=== PATIENT | female | born 1955 | race Caucasian/White ===

== ENCOUNTER 2024-03-12 11:34 | Emergency (ER) | payer MEDICARE, SELFPAY ==
[2024-03-12 11:50] VITALS: BP 134/82; PULSE 73; RESP 15; TEMP 36.8; O2SAT 94; BMI 16.0
--- NOTE | 2024-03-12 11:53 | XR_ITS ---
Examination: CT abdomen and pelvis without contrast. Coronal 3-D reconstructions. Sagittal 2-D reconstructions. Date and time of exam:March 12, 2024 1243 hours INDICATIONS: Onset left-sided flank pain today CTDI: vol (mGy): 3.94 DLP: (mGycm): 182 Technique: Axial images of the abdomen have been obtained, 3 mm slice thickness Intravenous contrast material has not been administered. Low dose protocols were performed. One or more of the following dose reduction techniques were used; automated exposure control, adjustment of the mA and/or KV according to patient size, use of iterative reconstruction technique. Findings: COPD with severe areas of airspace destruction at the lung bases No visualized liver or splenic lesion No gallstones 2 mm lower pole right renal calculus 2 mm 1 mm 1 mm left renal calculi Mild left hydronephrosis secondary to 5 mm proximal left ureteral calculus Aorta normal size No pericecal inflammatory change Diffuse the enlarged uterus with multiple areas of calcification No bladder mass IMPRESSION: Bilateral renal calculi Mild left hydronephrosis secondary to 5 mm proximal left ureteral calculus Recommend pelvic sonography to assess the significantly enlarged uterus
--- NOTE | 2024-03-12 11:53 | PD.EDRME ---
Rapid Medical Screening Exam RME Arrival date/time: 03/12/24 11:34 68-year-old female with medical history significant for COPD presents emergency department complaints of abdominal pain Chief Complaint: Abdominal Pain Time Seen by Provider: 03/12/24 11:43 Vital signs: Vital Signs Temperature 98.3 F 03/12/24 11:50 Pulse Rate 73 03/12/24 11:50 Respiratory Rate 15 03/12/24 11:50 Blood Pressure 134/82 H 03/12/24 11:50 Pulse Oximetry (%) 94 L 03/12/24 11:50 Oxygen Delivery Method Room Air 03/12/24 11:50
[2024-03-12 12:13] LABS: Basophils % (Auto) 0 % (0-2.5); Eosinophils # (Auto) 0.1 Thou/mm3 (0.0-0.5); Eosinophils % (Auto) 0 % (0-10); Hemoglobin 13.7 g/dL (12.0-16.0); Immature Granulocytes % (Auto) 1 % (0-0); Immature Granulocytes Auto 0.07 Thou/mm3 (0.00-0.00); Lymphocytes # (Auto) 1.1 Thou/mm3 (1.0-4.8); Lymphocytes % (Auto) 8 % (10-50); Mean Corpuscular HGB Conc 33.4 g/dl (31.0-37.0); Mean Corpuscular Hemoglobin 31.4 pg (25.0-35.0); Mean Corpuscular Volume 94 fL (80-100); Monocytes # (Auto) 1.1 Thou/mm3 (0.0-0.8); Monocytes % (Auto) 8 % (0-12); Neutrophils # (Auto) 11.4 Thou/mm3 (1.8-7.7); Neutrophils % (Auto) 83 % (37-80); Nucleated Red Blood Cell % 0 /100 WBC (0); Platelet Count 227 Thou/mm3 (140-440); Red Blood Count 4.36 Miln/mm3 (4.00-5.20); White Blood Count 13.8 Thou/mm3 (3.6-11.0)
[2024-03-12 12:36] LABS: Alanine Aminotransferase 16 U/L (10-49); Albumin, Serum 4.6 gm/dL (3.4-4.8); Alkaline Phosphatase 122 U/L (46-116); Anion Gap 8 (7-16); Aspartate Amino Transferase 25 U/L (0-34); BUN/Creatinine Ratio 26 Ratio (12-20); Bilirubin,Total 0.9 mg/dL (0.3-1.2); Blood Urea Nitrogen 23 mg/dL (9-23); Calcium 9.7 mg/dL (8.3-10.6); Calcium (Corrected) 9.7 mg/dL (8.5-10.1); Carbon Dioxide 26.6 mMol/L (20.0-31.0); Chloride 105 mMol/L (98-107); Creatinine (Component) 0.9 mg/dL (0.6-1.3); Estimated Creatinine Clearance 39.5 mL/min (>60); Globulin 2.3 gm/dL (2.3-3.5); Glucose 92 mg/dL (74-106); Lipase 52 U/L (12-53); Osmolality,Calculated 283 (275-295); Potassium 4.3 mMol/L (3.4-5.1); Sodium 140 mMol/L (136-145); Total Protein 6.9 gm/dL (5.7-8.2); eGFR > 60 See Note
[2024-03-12 13:58] LABS: Collection Type, Urine Clean Catch
[2024-03-12 14:12] LABS: Bacteria,Urine Rare; Bilirubin,Urine Negative (Negative); Blood,Urine 2+ (Negative); Color,Urine Yellow (Lt Yel-Yel); Glucose, Urine Negative (Negative); Ketones,Urine 1+ (Negative); Leukocyte Esterase,Urine Positive (Negative); Nitrite,Urine Negative (Negative); PH,Urine 6.5 (5.0-7.0); Protein,Urine Trace (Neg - Trace); RBC,Urine 1 /hpf (0-3); Specific Gravity,Urine 1.031 (1.001-1.035); Squamous Epithelial Cell,Urine 1 /hpf (0-5); Urobilinogen,Urine Negative mg/dL (0.0-1.0); WBC,Urine 48 /hpf (0-5)
[2024-03-12 14:13] LABS: Culture Indicated,Urine Yes
[2024-03-12 14:14] LABS: Clarity,Urine Hazy (Clear/Hazy)
[2024-03-12 15:42] VITALS: BP 160/82; PULSE 75; RESP 20; TEMP 36.9; O2SAT 95
--- NOTE | 2024-03-12 16:31 | PD.EDADULT ---
ED General RME/HPI General Chief complaint: Abdominal Pain Stated complaint: ABD LEFT X FRI; VOMITING, DIARRHEA Time Seen by Provider: 03/12/24 11:43 Arrival date/time: 03/12/24 11:34 CC: Left flank pain HPI ongoing for the past 4 days with waxing and waning sometimes completely absent particularly Tuesday night and then returns again. The pain does radiate into the left groin area, no prior history of similar events complains of mild nausea OTC medicine of Tylenol taken with some relief. No prior history of similar events currently is not nauseated. Awake alert oriented not in any acute distress. RME / HPI RME / HPI narrative: 03/12/24 11:34 68-year-old female with medical history significant for COPD presents emergency department complaints of abdominal pain Related Data Previous Rx's ?Medication ?Instructions ?Recorded cephalexin 500 mg tablet 500 mg PO TID #21 tabs 03/12/24 ketorolac 10 mg tablet 10 mg PO Q8H #14 tabs 03/12/24 ondansetron 4 mg disintegrating 4 mg PO Q8H #10 tabs 03/12/24 tablet tamsulosin 0.4 mg capsule (Flomax) 0.4 mg PO QDAY #30 caps 03/12/24 Allergies Allergy/AdvReac Type Severity Reaction Status Date / Time No Known Allergies Allergy Verified 03/12/24 11:36 Review of Systems Review of Systems Narrative Review of Systems: GEN: No fever, no chills, no weight loss EYES: No discharge, no visual changes, no pain HEENT: No ear pain, no congestion, no sore throat PULM: No shortness of breath, no cough, no congestion CV: No chest pain, no dyspnea on exertion, no palpitations GI: No nausea, no vomiting, no diarrhea, no pain, no constipation : No frequency, no urgency, no dysuria MUSC/SKEL: No joint pain, no back pain SKIN: No rash PSYCH: No hallucinations, no depression HEME/LYMPH: No easy bleeding or bruising tendencies NEURO: No weakness, no headache Past Medical History Past Medical History CARDIAC: Negative Congestive Heart Failure RESPIRATORY: Positive Chronic Obstructive Pulmonary Disease (COPD) GENITOURINARY: Negative Renal Disease ENDOCRINE: Negative Diabetes Mellitus Type 1 or Diabetes Mellitus Type 2 Social History SMOKING STATUS: Never smoker ED Exam Narrative Physical exam: [General: Not in any acute distress Head normocephalic HEENT: Within acceptable limits Neck is supple nontender Chest equal chest rise nontender to palpation Respiratory: Clear to auscultation no wheezes crackles or rubs CV: Rate rhythm is regular no murmurs rubs or clicks Abdomen is distended secondary to body habitus soft nontender no masses positive bowel sounds all 4 quadrants Back: Left CVA tenderness no right CVA tenderness, no spinous process tenderness from cervical spine thoracic and lumbar spine Skin: Intact no petechiae rash induration ulceration or crepitus Extremities: Moving all extremity against resistance cap refill less than 2 seconds neurosensory intact Neuro: Awake alert oriented x3 Glascow coma 15 no focal deficits] Course Quality Measures none Orders Category Date Time Status CT abdomen pelvis wo con Stat Exams 03/12/24 11:53 Completed CBC Stat Lab 03/12/24 11:58 Completed Comprehensive Metabolic Panel Stat Lab 03/12/24 11:58 Completed Lipase Stat Lab 03/12/24 11:58 Completed UA, C/S IF [Urinalysis, C/S if Indicated] Stat Lab 03/12/24 13:00 Completed Urine Culture Stat Lab 03/12/24 13:00 Received Vital Signs Vital signs: Vital Signs Temperature 98.3 F 03/12/24 11:50 Pulse Rate 73 03/12/24 11:50 Respiratory Rate 15 03/12/24 11:50 Blood Pressure 134/82 H 03/12/24 11:50 Pulse Oximetry (%) 94 L 03/12/24 11:50 Oxygen Delivery Method Room Air 03/12/24 11:[address] [facility] Patient data External records reviewed:: [facility] previous records Clinical information provided by:: patient Social determinants that could affect healthcare access:: none Patient has the following chronic illnesses:: None How is presenting disease/condition affected by chronic disease/condition?: uneffected by Evaluation data The following diagnostics were reviewed and interpreted by me:: lab results and radiology exam(s) Lab and/or radiology exams considered but not ordered:: CBC shows no acute leukocytosis anemia thrombocytopenia CMP shows no acute electrolyte imbalances renal impairment transaminitis or T. bili elevation Urine has positive WBCs and leukocyte Estrace positive with some bacteria. Lipase is negative CT shows the patient has a left 5 mm distal ureter with minimal hydro-. Interpretation Summary: Left urolithiasis with mild hydro Medications Medications considered but not ordered:: None Medication administrations:: None Consultations Consultation(s) initiated? (list below): No Diagnosis Differential Diagnosis ED Complaint MDM: Pyelonephritis hydroureter urolithiasis hydronephrosis Most likely diagnosis given after review of the tests above:: Urolithiasis flank pain Admission Indicated Admission indicated?: not indicated Explain why admission is indicated or not indicated:: Stable for outpatient follow-up Admission Request Was there a request for admission?: No Disposition Plan Disposition Plan: Discharge Discharge Attestation Discharge Attestation: The patient and all family members were given an opportunity to ask questions and understood the discharge instructions. Discharge instructions specifically effects, indications for sooner follow up or return to the emergency department, and the expected course of current diagnosis. Patient condition: Stable Medical Decision Making Differential Diagnosis Differential Diagnosis: Pyelonephritis hydroureter urolithiasis hydronephrosis Lab Data 03/12/24 11:58 03/12/24 11:58 Labs: Lab Results 03/12/24 03/12/24 Range/Units 11:58 13:00 WBC 13.8 H (3.6-11.0) Thou/mm3 RBC 4.36 (4.00-5.20) Miln/mm3 Hgb 13.7 (12.0-16.0) g/dL Hct 41.0 (36.0-46.0) % MCV 94 (80-100) fL MCH 31.4 (25.0-35.0) pg MCHC 33.4 (31.0-37.0) g/dl RDW Std Deviation 46.0 (36.4-46.3) fL Plt Count 227 (140-440) Thou/mm3 Neut % (Auto) 83 H (37-80) % Lymph % (Auto) 8 L (10-50) % [place] % (Auto) 8 (0-12) % Eos % (Auto) 0 (0-10) % Baso % (Auto) 0 (0-2.5) % Neut # (Auto) 11.4 H (1.8-7.7) Thou/mm3 Lymph # (Auto) 1.1 (1.0-4.8) Thou/mm3 [place] # (Auto) 1.1 H (0.0-0.8) Thou/mm3 Eos # (Auto) 0.1 (0.0-0.5) Thou/mm3 Baso # (Auto) 0.0 (0.0-0.2) Thou/mm3 Immature Gran # (Auto) 0.07 H (0.00-0.00) Thou/mm3 Absolute Nucleated RBC 0.00 (0.00-0.00) Thou/mm3 Immature Gran % 1 H (0-0) % Nucleated RBC % 0 (0) /100 WBC Sodium 140 (136-145) mMol/L Potassium 4.3 (3.4-5.1) mMol/L Chloride 105 (98-107) mMol/L Carbon Dioxide 26.6 (20.0-31.0) mMol/L Anion Gap 8 (7-16) BUN 23 (9-23) mg/dL Creatinine 0.9 (0.6-1.3) mg/dL Estim Creat Clear Calc 39.5 L (>60) mL/min eGFR > 60 (60 - ) See Note BUN/Creatinine Ratio 26 H (12-20) Ratio Glucose 92 (74-106) mg/dL Calculated Osmolality 283 (275-295) Calcium 9.7 (8.3-10.6) mg/dL Corrected Calcium 9.7 (8.5-10.1) mg/dL Total Bilirubin 0.9 (0.3-1.2) mg/dL AST 25 (0-34) U/L ALT 16 (10-49) U/L Alkaline Phosphatase 122 H (46-116) U/L Total Protein 6.9 (5.7-8.2) gm/dL Albumin 4.6 (3.4-4.8) gm/dL Globulin 2.3 (2.3-3.5) gm/dL Albumin/Globulin Ratio 2.0 (1.2-2.2) Lipase 52 (12-53) U/L Ur Collection Type Clean Catch Urine Color Yellow (Lt Yel-Yel) Urine Clarity Hazy (Clear/Hazy) Urine pH 6.5 (5.0-7.0) Ur Specific [place] 1.031 (1.001-1.035) Urine Protein Trace (Neg - Trace) Urine Glucose (UA) Negative (Negative) Urine Ketones 1+ A (Negative) Urine Blood 2+ A (Negative) Urine Nitrite Negative (Negative) Urine Bilirubin Negative (Negative) Urine Urobilinogen (Auto) Negative (0.0-1.0) mg/dL Ur Leukocyte Esterase Positive (Negative) Urine RBC 1 (0-3) /hpf Urine WBC 48 H (0-5) /hpf Ur Squamous Epith Cells 1 (0-5) /hpf Urine Bacteria Rare (None) Ur Culture Indicated? Yes Discharge Plan Plan Patient Disposition: HOME (Self Care) Prescriptions/Referrals Prescriptions/Med Rec: New ondansetron 4 mg tablet,disintegrating 4 mg PO Q8H Qty: 10 0RF tamsulosin [Flomax] 0.4 mg capsule 0.4 mg PO QDAY Qty: 30 0RF ketorolac 10 mg tablet 10 mg PO Q8H Qty: 14 0RF Rx Instructions: maximum total duration of 5 days from all oral, intranasal, or parenteral formulations cephalexin 500 mg tablet 500 mg PO TID Qty: 21 0RF Referrals: Marquise Che MD [Primary Care Provider] - In 1 week Hira Rocha MD [Physician] - In 1 week Problem List Clinical Impression: Urolithiasis, Hydroureter Patient/Caregiver Discharge Instructions Education Materials: ED Kidney Stone Undescended No ... Additional Instructions: Follow-up with the urologist listed above take the medications if there is a worsening of symptoms in spite of medications return the emergency room for reevaluation. Print Language: [place] Stand Alone Forms: Maryjo Award Info., Patient Portal Info Letter, Work/School Release PA/RISK CONTROL FIELD REPRESENTATIVE Supervising Physician PA/RISK CONTROL FIELD REPRESENTATIVE Supervising Physician: Ezra Rolon ENP
== END 2024-03-12 16:44 | disposition home or self-care (01) ==
PROVIDERS: Nurse Practitioner Primary Care; Emergency Provider Emergency Medicine; PCP Internal Medicine
DX: N13.2 Hydronephrosis with renal and ureteral calculous obstruction (principal)
CPT/HCPCS: 36415; 74176; 80053; 81001; 83690; 85025; 87086; 99284

== ENCOUNTER → 2024-04-12 | Outpatient (CLI) | payer MEDICARE, BC, SELFPAY ==
--- NOTE | 2024-04-12 15:30 | XR_ITS ---
Examination: CT chest, without intravenous contrast. Sagittal and coronal 2-D reconstructions. Exam date and time: April 12, 2024 1537 hours INDICATIONS: Nicotine dependence, smoking history 20 years CTDI:vol (mGy) 4.73 DLP: (mGycm) 204 Technique: Multiple 3.0 mm axial sections of the chest to been obtained. Bone and lung density settings are obtained. Sagittal and coronal 2-D reconstructions have been obtained. Low dose protocols were performed. One or more of the following dose reduction techniques were used; automated exposure control, adjustment of the mA and/or KV according to patient size, use of iterative reconstruction technique. Findings: No thoracic aortic aneurysm dilatation Pulmonary artery segments are not enlarged. COPD with multiple areas of airspace destruction 8mm pulmonary nodule posterior right upper lobe image 25 Focal pleural thickening posterior right upper hemithorax image 32 measuring up to 8 mm Pulmonary mass in the right middle lobe 21 mm image 57 4 mm pulmonary nodule pleural-based lingular segment image 68 Mildly dilated bronchi in the lower lobes No visualized liver or splenic lesion 2 mm nonobstructing right renal calculus IMPRESSION: COPD Multiple pulmonary nodules as above, suggest follow-up chest imaging in 3 6 months
[2024-04-12 17:01] LABS: Basophils % (Auto) 1 % (0-2.5); Eosinophils # (Auto) 0.3 Thou/mm3 (0.0-0.5); Eosinophils % (Auto) 3 % (0-10); Hematocrit 36.4 % (36.0-46.0); Hemoglobin 12.3 g/dL (12.0-16.0); Immature Granulocytes % (Auto) 0 % (0-0); Immature Granulocytes Auto 0.02 Thou/mm3 (0.00-0.00); Lymphocytes % (Auto) 25 % (10-50); Mean Corpuscular HGB Conc 33.8 g/dl (31.0-37.0); Mean Corpuscular Hemoglobin 31.1 pg (25.0-35.0); Mean Corpuscular Volume 92 fL (80-100); Monocytes # (Auto) 0.6 Thou/mm3 (0.0-0.8); Monocytes % (Auto) 7 % (0-12); Neutrophils % (Auto) 64 % (37-80); Nucleated Red Blood Cell % 0 /100 WBC (0); Platelet Count 257 Thou/mm3 (140-440); RDW Standard Deviation 45.1 fL (36.4-46.3); Red Blood Count 3.96 Miln/mm3 (4.00-5.20); White Blood Count 7.9 Thou/mm3 (3.6-11.0)
[2024-04-12 17:12] LABS: Glucose Estimated Average 103 mg/dL (80-131); Hemoglobin A1C 5.2 % Hgb (4.8-6.0)
[2024-04-12 17:13] LABS: B-Type Natriuretic Peptide 120 pg/mL (0-100)
[2024-04-12 17:18] LABS: Vitamin D 25 Hydroxy Total 29.8 ng/mL (7.3-40.2)
[2024-04-12 17:20] LABS: Alanine Aminotransferase 48 U/L (10-49); Albumin, Serum 4.5 gm/dL (3.4-4.8); Albumin/Globulin Ratio 2.1 (1.2-2.2); Alkaline Phosphatase 115 U/L (46-116); Anion Gap 5 (7-16); Aspartate Amino Transferase 48 U/L (0-34); BUN/Creatinine Ratio 25 Ratio (12-20); Bilirubin,Total 0.8 mg/dL (0.3-1.2); Blood Urea Nitrogen 15 mg/dL (9-23); Calcium 9.4 mg/dL (8.3-10.6); Calcium (Corrected) 9.4 mg/dL (8.5-10.1); Carbon Dioxide 30.8 mMol/L (20.0-31.0); Cardiac Risk Estimate 4.1 RATIO (3.7-5.6); Chloride 106 mMol/L (98-107); Cholesterol 240 mg/dL (132-200); Creatinine (Component) 0.6 mg/dL (0.6-1.3); Free T4 (Free Thyroxine) 1.24 ng/dL (0.89-1.76); Globulin 2.1 gm/dL (2.3-3.5); Glucose 84 mg/dL (74-106); HDL Cholesterol 59 mg/dL (40-60); LDL Cholesterol,Calculated 163 mg/dL (0-130); Osmolality,Calculated 282 (275-295); Sodium 142 mMol/L (136-145); Thyroid Stimulating Hormone 2.96 uIU/mL (0.55-4.78); Total Protein 6.6 gm/dL (5.7-8.2); Triglycerides 88 mg/dL (30-150); eGFR > 60 See Note
== END | disposition home or self-care (01) ==
LOC: CCTX 14:58 → COPL 15:44
PROVIDERS: PCP Internal Medicine; Referring Provider Internal Medicine; Visit Provider Radiology Diagnostic Radiology
DX: J44.9 Chronic obstructive pulmonary disease, unspecified (principal); R91.8 Other nonspecific abnormal finding of lung field; Z87.891 Personal history of nicotine dependence; I11.0 Hypertensive heart disease with heart failure; I50.42 Chronic combined systolic (congestive) and diastolic (congestive) heart failure; E55.9 Vitamin D deficiency, unspecified; E78.2 Mixed hyperlipidemia; E03.9 Hypothyroidism, unspecified
CPT/HCPCS: 36415; 71271; 80053; 80061; 82306; 83036; 83880; 84439; 84443; 85025